=== PATIENT | male | born 1955 | race Caucasian/White ===

== ENCOUNTER 2020-07-26 07:17 | Day surgery (SDC) | payer BC ==
[~2020-07-26 07:17] MED LIST: Lactated Ringers 1,000 ML IV SCH; Sodium Chloride 0.9% 10 ML Syringe FLUSH PRN
[2020-07-26] MEDS ORDERED: Propofol 200 MG/20 ML SDV IV ONE (07:18)
[2020-07-26] MEDS ORDERED: Simethicone Drops 40 MG/0.6 ML 30 ML Bottle ONE (09:22)
--- NOTE | 2020-07-26 09:32 | PCM.OPNOTE ---
- General Post-Op/Procedure Note Date of Surgery/Procedure: 07/26/20 Operative Procedure(s): c scope Findings: nl exam Pre Op Diagnosis: screening for colon cancer Post-Op Diagnosis: Same Anesthesia Technique: MAC Primary Surgeon: Kenny Molina Anesthesia Provider: Brad Huitron Pathology: none Complications: None Condition: Good Free Text/Narrative:: see dictation [id number]
--- NOTE | 2020-07-26 16:59 | OR ---
DATE OF OPERATION: 07/26/2020 SURGEON: Kenny Molina MD PROCEDURE PERFORMED: Colonoscopy. PREOPERATIVE DIAGNOSIS: Need for colon cancer screening. POSTOPERATIVE DIAGNOSIS: Normal exam. INDICATIONS FOR PROCEDURE: This is a 65-year-old white male who is referred for routine colon cancer screening. He is asymptomatic and without complaints. DESCRIPTION OF OPERATION: After an excellent IV sedation was administered, digital rectal exam was performed. No marked abnormality was noted. Flexible colonoscope was inserted and advanced to the cecum. Prep was excellent. The following findings were noted: Ascending colon unremarkable. Transverse colon unremarkable. Descending colon unremarkable. Sigmoid and rectum unremarkable. Colon was deflated. Scope was removed. The patient tolerated the procedure well. RECOMMENDATIONS: Repeat colonoscopy in 10 years. /[id number] /MODL
== END 2020-07-26 10:25 | disposition home or self-care (01) ==
LOC: FB.SDS 07:17
PROVIDERS: ATTEND Surgery
DX: Z12.11 Encounter for screening for malignant neoplasm of colon (principal); E11.9 Type 2 diabetes mellitus without complications; E78.5 Hyperlipidemia, unspecified; Z98.890 Other specified postprocedural states; Z79.899 Other long term (current) drug therapy; Z88.0 Allergy status to penicillin
CPT/HCPCS: 00812-QZ; 82962; A9270-GY; J2704; J7120